=== PATIENT | male | born 2000 | race Two or more races ===

== ENCOUNTER 2022-06-12 23:05 | Emergency (ER) | payer OTHER ==
[~2022-06-12] VITALS: Ht 182.9 cm; Wt 146.3 kg
[2022-06-13] MEDS ORDERED: COROSUS RIGHT EAR (00:19)
[2022-06-13 01:50] VITALS: BP 139/92
== END 2022-06-13 01:53 | disposition home or self-care (01) ==
LOC: ER 23:05
DX: H60.91 Unspecified otitis externa, right ear (principal)